=== PATIENT | male | born 1950 | race Caucasian/White ===

== ENCOUNTER 2019-01-22 10:02 | Inpatient (IN) | payer MEDICARE, MEDICAID ==
[~2019-01-22] VITALS: Ht 170.2 cm; Wt 83.6 kg
[2019-01-22] MEDS ORDERED: HYDR-3245 PO (10:26)
[2019-01-22] MEDS ORDERED: blood pressure med (10:26)
--- NOTE | 2019-01-22 10:30 | NUR ---
pt to ed for constant aching cp x "a few months". pt states he has black mold in his house and attributes the pain to the chemicals used to kill mold. pt states pain is worst when lying down and trying to sleep. pt states when pain starts, he has to get up and move around to decrease pain. connected to all monitors. vss. no needs at this time. call light within reach. awaiting edmd assessment.
[2019-01-22] MEDS ORDERED: ASPIRIN 81 MG TABLET CHEW ONE (10:59)
[2019-01-22] MEDS ORDERED: ASPIRIN 81 MG TABLET CHEW PO ONE (11:00)
--- NOTE | 2019-01-22 11:00 | NUR ---
pt resting in room. vss. no needs at thist jun. call light within reach. pt refusing asa stating it gives him nosebleeds.
[2019-01-22 11:29] LABS: BASOPHILS # (AUTO) 0.02 x10^3/uL (0-0.1); BASOPHILS % (AUTO) 0 % (0-1); EOSINOPHILS % (AUTO) 2 % (1-7); LYMPHOCYTES # (AUTO) 1.93 x10^3/uL (1-3.4); LYMPHOCYTES % (AUTO) 29 % (22-44); MD NO; MEAN CORPUSCULAR HEMOGLOBIN 29.2 pg (27.5-34.5); MEAN CORPUSCULAR HGB CONC 33.2 g/dL (33.2-36.2); MEAN CORPUSCULAR VOLUME 87.9 fL (81-97); MEAN PLATELET VOLUME 8.9 fL (7.4-10.4); MONOCYTES % (AUTO) 9 % (2-9); NEUTROPHILS # (AUTO) 4.02 x10^3/uL (1.8-6.8); NEUTROPHILS % (AUTO) 60 % (42-75); PLATELET COUNT 248 x10^3/uL (130-400); RED BLOOD COUNT 5.33 x10^6/uL (4.38-5.82); RED CELL DISTRIBUTION WIDTH 15.3 % (9.4-14.8)
[2019-01-22 11:37] LABS: ALBUMIN 3.6 g/dL (3.4-5.0); ANION GAP 2 mmol/L (5-15); CALCIUM 8.2 mg/dL (8.5-10.1); CHLORIDE 110 mmol/L (98-107)
[2019-01-22 11:45] LABS: ALANINE AMINOTRANSFERASE 19 U/L (12-78); ALKALINE PHOSPHATASE 95 U/L (45-117); BILIRUBIN,TOTAL 0.4 mg/dL (0.2-1.0); CREATININE 0.96 mg/dL (0.7-1.3); TOTAL PROTEIN 6.8 g/dL (6.4-8.2); TROPONIN I 0.089 ng/mL (0.000-0.045)
--- NOTE | 2019-01-22 12:01 | NUR ---
PT RESTING IN ROOM. VSS. NO NEEDS AT THIS TIME. CALL LIGHT WITHIN REACH. ALL RESULTS BACK AT THIS TIME. CHART UP FOR RECHECK.
--- NOTE | 2019-01-22 12:13 | NUR ---
edmd to bedside to update on poc. plan to admit. iv established. repeat cxr complete. plan to admit.
[2019-01-22] MEDS: PLEASE ENTER WEIGHT MC SCH ×2 (14:00→22:00)
[2019-01-22] MEDS ORDERED: DOCUSATE 100 MG CAPSULE PO PRN (14:00)
[2019-01-22] MEDS ORDERED: GUAIFENESIN/DM 200-20MG, 10ML UDC PO PRN (14:00)
[2019-01-22] MEDS ORDERED: ENOXAPARIN 40 MG/0.4 ML SQ SCH (14:00)
[2019-01-22] MEDS ORDERED: ACETAMINOPHEN 325 MG TABLET PO PRN (14:00)
[2019-01-22] MEDS ORDERED: ONDANSETRON 2MG/ML, 2ML IVPush PRN (14:00)
[2019-01-22] MEDS ORDERED: NITROGLYCERIN 0.4 MG BOTTLE (25 TABS) SL PRN (14:00)
[2019-01-22] MEDS ORDERED: ENALAPRILAT 1.25 MG/ML, 2ML IVPush PRN (14:00)
[2019-01-22] MEDS ORDERED: ONDANSETRON ODT 4 MG PO PRN (14:00)
[2019-01-22] MEDS ORDERED: LABETALOL 20 MG/4 ML IVPush PRN (14:00)
[2019-01-22] MEDS ORDERED: BISACODYL 10 MG SUPP PR PRN (14:00)
[2019-01-22] MEDS ORDERED: POLYETHYLENE GLYCOL 17 GM PACKET PO PRN (14:00)
[2019-01-22 14:32] LABS: TROPONIN I 0.094 ng/mL (0.000-0.045)
[2019-01-22 17:34] VITALS: BP 128/75
[2019-01-22] MEDS: HYDROcodone/APAP 10/325 MG TABLET PO PRN ×2 (17:52→23:04)
[2019-01-22 18:56] VITALS: BP 116/68
[2019-01-22 20:44] LABS: TROPONIN I 0.084 ng/mL (0.000-0.045)
[2019-01-23 02:49] VITALS: BP 121/64
[2019-01-23] MEDS: ASPIRIN 325 MG TABLET EC PO SCH (05:52)
[2019-01-23] MEDS: HYDROcodone/APAP 10/325 MG TABLET PO PRN ×3 (05:56→18:31)
[2019-01-23] MEDS: PLEASE ENTER WEIGHT MC SCH ×3 (05:57→22:00)
[2019-01-23 06:08] LABS: BASOPHILS # (AUTO) 0.03 x10^3/uL (0-0.1); BASOPHILS % (AUTO) 0 % (0-1); EOSINOPHILS # (AUTO) 0.15 x10^3/uL (0-0.4); EOSINOPHILS % (AUTO) 2 % (1-7); LYMPHOCYTES # (AUTO) 2.81 x10^3/uL (1-3.4); LYMPHOCYTES % (AUTO) 43 % (22-44); MD NO; MEAN CORPUSCULAR HEMOGLOBIN 29.7 pg (27.5-34.5); MEAN CORPUSCULAR VOLUME 87.4 fL (81-97); MEAN PLATELET VOLUME 8.8 fL (7.4-10.4); MONOCYTES # (AUTO) 0.74 x10^3/uL (0.2-0.8); MONOCYTES % (AUTO) 11 % (2-9); NEUTROPHILS # (AUTO) 2.81 x10^3/uL (1.8-6.8); NEUTROPHILS % (AUTO) 43 % (42-75); PLATELET COUNT 211 x10^3/uL (130-400); RED BLOOD COUNT 5.13 x10^6/uL (4.38-5.82); RED CELL DISTRIBUTION WIDTH 15.4 % (9.4-14.8)
[2019-01-23 06:17] LABS: CHLORIDE 110 mmol/L (98-107)
[2019-01-23 06:24] LABS: ANION GAP 3 mmol/L (5-15); CALCIUM 8.4 mg/dL (8.5-10.1); CHOL/HDL RATIO 4.9; CHOLESTEROL, TOTAL 165 mg/dL (140-239); CREATININE 0.96 mg/dL (0.7-1.3); HDL CHOL % 21 % (26-37); HDL CHOLESTEROL (DIRECT) 34 mg/dL (40-60); LDL CHOLESTEROL,CALCULATED 102 mg/dL (54-169); TRIGLYCERIDES 147 mg/dL (50-200); VLDL CHOLESTEROL 29 mg/dL (0-25)
[2019-01-23 06:37] VITALS: BP 127/71
[2019-01-23] MEDS: LISINOPRIL 20 MG TABLET PO SCH (12:03)
[2019-01-23 14:02] VITALS: BP 113/69
[2019-01-23 20:00] VITALS: BP 107/67
[2019-01-23] MEDS: ATORVASTATIN 40 MG TABLET PO SCH (20:06)
[2019-01-24 02:22] VITALS: BP 123/73
[2019-01-24 04:58] LABS: BASOPHILS # (AUTO) 0.03 x10^3/uL (0-0.1); BASOPHILS % (AUTO) 0 % (0-1); EOSINOPHILS # (AUTO) 0.11 x10^3/uL (0-0.4); EOSINOPHILS % (AUTO) 2 % (1-7); LYMPHOCYTES # (AUTO) 2.39 x10^3/uL (1-3.4); LYMPHOCYTES % (AUTO) 32 % (22-44); MD NO; MEAN CORPUSCULAR HEMOGLOBIN 29.1 pg (27.5-34.5); MEAN CORPUSCULAR VOLUME 88.3 fL (81-97); MEAN PLATELET VOLUME 8.4 fL (7.4-10.4); MONOCYTES % (AUTO) 9 % (2-9); NEUTROPHILS # (AUTO) 4.25 x10^3/uL (1.8-6.8); NEUTROPHILS % (AUTO) 57 % (42-75); PLATELET COUNT 236 x10^3/uL (130-400)
[2019-01-24 05:04] LABS: ALBUMIN 3.8 g/dL (3.4-5.0); ANION GAP 4 mmol/L (5-15); CALCIUM 8.5 mg/dL (8.5-10.1); CHLORIDE 108 mmol/L (98-107)
[2019-01-24 05:08] LABS: ALANINE AMINOTRANSFERASE 17 U/L (12-78); ALKALINE PHOSPHATASE 87 U/L (45-117); BILIRUBIN,TOTAL 0.5 mg/dL (0.2-1.0); CREATININE 0.96 mg/dL (0.7-1.3); TOTAL PROTEIN 6.9 g/dL (6.4-8.2)
[2019-01-24] MEDS: ASPIRIN 325 MG TABLET EC PO SCH (06:00)
[2019-01-24] MEDS: PLEASE ENTER WEIGHT MC SCH ×3 (06:00→21:42)
[2019-01-24 07:50] VITALS: BP 122/71
[2019-01-24] MEDS: HYDROcodone/APAP 10/325 MG TABLET PO PRN ×2 (08:43→21:45)
[2019-01-24] MEDS: LISINOPRIL 20 MG TABLET PO SCH (08:44)
[2019-01-24] MEDS ORDERED: FENTANYL PF 100 MCG/2ML ONE (15:12)
[2019-01-24] MEDS ORDERED: MIDAZOLAM 1 MG/ML, 2ML ONE (15:12)
[2019-01-24] MEDS ORDERED: HEPARIN 1,000 UNITS/ML, 10ML ONE (15:13)
[2019-01-24] MEDS ORDERED: DIPHENHYDRAMINE 50 MG/ML, 1ML ONE (15:13)
[2019-01-24] MEDS ORDERED: LIDOCAINE-MPF 1%, 5ML ONE (15:13)
[2019-01-24] MEDS ORDERED: VERAPAMIL 2.5 MG/ML, 2ML ONE (15:13)
[2019-01-24] MEDS ORDERED: BIVALIRUDIN 250 MG ONE (16:01)
[2019-01-24] MEDS ORDERED: PRASUGREL 10 MG TABLET ONE (16:09)
[2019-01-24 16:35] VITALS: BP 132/75
[2019-01-24] MEDS ORDERED: BIVALIRUDIN 250 MG in SODIUM CHLORIDE 0.9% 50 ML IV SCH (16:53)
[2019-01-24] MEDS: SODIUM CHLORIDE 0.9% 1,000 ML IV SCH (16:53)
[2019-01-24 20:00] VITALS: BP 120/70
[2019-01-24] MEDS: ATORVASTATIN 40 MG TABLET PO SCH (21:45)
[2019-01-24 23:43] LABS: TROPONIN I 0.068 ng/mL (0.000-0.045)
[2019-01-25] MEDS: SODIUM CHLORIDE 0.9% 1,000 ML IV SCH ×2 (00:53→08:53)
[2019-01-25 02:00] VITALS: BP 138/71
[2019-01-25] MEDS: PLEASE ENTER WEIGHT MC SCH (04:57)
[2019-01-25] MEDS: ASPIRIN 325 MG TABLET EC PO SCH (05:25)
[2019-01-25 05:49] LABS: BASOPHILS # (AUTO) 0.07 x10^3/uL (0-0.1); BASOPHILS % (AUTO) 1 % (0-1); EOSINOPHILS # (AUTO) 0.11 x10^3/uL (0-0.4); EOSINOPHILS % (AUTO) 1 % (1-7); LYMPHOCYTES # (AUTO) 2.17 x10^3/uL (1-3.4); LYMPHOCYTES % (AUTO) 29 % (22-44); MD NO; MEAN CORPUSCULAR HEMOGLOBIN 29.9 pg (27.5-34.5); MEAN CORPUSCULAR HGB CONC 34.4 g/dL (33.2-36.2); MEAN PLATELET VOLUME 8.4 fL (7.4-10.4); MONOCYTES # (AUTO) 0.67 x10^3/uL (0.2-0.8); MONOCYTES % (AUTO) 9 % (2-9); NEUTROPHILS # (AUTO) 4.47 x10^3/uL (1.8-6.8); NEUTROPHILS % (AUTO) 60 % (42-75); PLATELET COUNT 216 x10^3/uL (130-400); RED BLOOD COUNT 5.27 x10^6/uL (4.38-5.82); RED CELL DISTRIBUTION WIDTH 15.2 % (9.4-14.8)
[2019-01-25 06:01] LABS: CHLORIDE 108 mmol/L (98-107)
[2019-01-25 06:08] LABS: ANION GAP 4 mmol/L (5-15); CALCIUM 8.4 mg/dL (8.5-10.1); CREATININE 0.94 mg/dL (0.7-1.3)
[2019-01-25 07:53] VITALS: BP 115/67
[2019-01-25] MEDS ORDERED: PRASUGREL 10 MG TABLET PO SCH (09:00)
[2019-01-25] MEDS: LISINOPRIL 20 MG TABLET PO SCH (09:47)
[2019-01-25] MEDS ORDERED: ATOR40TA78 PO (10:35)
[2019-01-25] MEDS ORDERED: ASPI-650 PO (10:35)
[2019-01-25] MEDS ORDERED: LISI-170 PO (10:35)
[2019-01-25] MEDS ORDERED: PRAS10TA4 PO (10:35)
[2019-01-25] MEDS ORDERED: NITR0.4T SL (10:35)
== END 2019-01-25 11:52 | disposition home or self-care (01) | DRG 248 ==
LOC: ED 11:28 → OBSVTOIN 14:50 → INTOOBSV 14:50 → EDIP 14:50 → 5SO 16:40 → DCLOUNGE 01-25 11:39
PROVIDERS: ADMIT Internal Medicine; ATTEND Internal Medicine
PROC: 02703DZ Dilation of Coronary Artery, One Artery with Intraluminal Device, Percutaneous Approach (ICD-10-PCS; principal; 2019-01-24)
PROC: 4A023N7 Measurement of Cardiac Sampling and Pressure, Left Heart, Percutaneous Approach (ICD-10-PCS; 2019-01-24)
PROC: B2111ZZ Fluoroscopy of Multiple Coronary Arteries using Low Osmolar Contrast (ICD-10-PCS; 2019-01-24)
PROC: B2151ZZ Fluoroscopy of Left Heart using Low Osmolar Contrast (ICD-10-PCS; 2019-01-24)
DX: I21.4 Non-ST elevation (NSTEMI) myocardial infarction (principal); I50.33 Acute on chronic diastolic (congestive) heart failure; F11.20 Opioid dependence, uncomplicated; E78.5 Hyperlipidemia, unspecified; F17.210 Nicotine dependence, cigarettes, uncomplicated; I11.0 Hypertensive heart disease with heart failure; G89.29 Other chronic pain; I35.8 Other nonrheumatic aortic valve disorders; J44.9 Chronic obstructive pulmonary disease, unspecified; Z66 Do not resuscitate; Z91.14 Patient's other noncompliance with medication regimen; Z99.81 Dependence on supplemental oxygen; Z87.01 Personal history of pneumonia (recurrent); Z71.6 Tobacco abuse counseling
CPT/HCPCS: 36415; 71045; 78452; 80048; 80053; 80061; 83735; 84145; 84484; 85025; 92928; 93005; 93017; 93306; 93458; 99156; 99157; 99285; C1876; C1894; G0378; J0583; J1644; J1650; J2250; J3010; A9502; C1769; C1887; C9898; J1200; Q9967

== ENCOUNTER 2021-03-31 13:29 | Emergency (ER) | payer MEDICARE, MEDICAID ==
[~2021-03-31] VITALS: Ht 170.2 cm; Wt 90.0 kg
[~2021-03-31 13:29] MED LIST: ASPI325T20 PO; ATOR40TA78 PO; HYDR1TAB53 PO; LISI-170 PO; NITR0.4T41 SL; PRAS10TA4 PO; blood pressure med
--- NOTE | 2021-03-31 16:46 | NUR ---
THIS IS A 71 YEAR OLD MALE WHO C.O M-GLF YESTERDAY +LOC PRESENTS TODAY WITH SINIFICANT NECK PAIN (PIT PROVIDER DEFERRING NEED FOR C-COLLAR) AND LEFT KNEE PAIN MOTOR/SENSORY INTACT X4
--- NOTE | 2021-03-31 16:46 | NUR ---
PT TO ROOM FROM LOBBY
[2021-03-31] MEDS ORDERED: OXYcodone/APAP 7.5/325MG TABLET ONE (17:55)
[2021-03-31 17:58] VITALS: BP 150/78
[2021-03-31] MEDS ORDERED: OXYcodone/APAP 7.5/325MG TABLET PO ONE (18:00)
== END 2021-03-31 19:09 | disposition home or self-care (01) ==
LOC: ED 18:12
DX: S82.032A Displaced transverse fracture of left patella, initial encounter for closed fracture (principal); S00.01XA Abrasion of scalp, initial encounter; M54.2 Cervicalgia; R06.2 Wheezing; I10 Essential (primary) hypertension; I25.2 Old myocardial infarction; G89.29 Other chronic pain; F17.210 Nicotine dependence, cigarettes, uncomplicated; W17.81XA Fall down embankment (hill), initial encounter; Y93.89 Activity, other specified; Y92.828 Other wilderness area as the place of occurrence of the external cause; Y99.8 Other external cause status
CPT/HCPCS: 29505; 70450; 72125; 99285